=== PATIENT | female | born 1955 ===

== ENCOUNTER 2017-06-17 16:08 | Emergency (ER) | payer MEDICARE ==
[2017-06-17 16:27] VITALS: BMI 32.9
[2017-06-17 16:28] VITALS: RESP 18
--- NOTE | 2017-06-17 17:30 | C.PDOC ---
History Of Present Illness 61 yr old female presents to the ER with complaints of 3 day history of painful rash to the right axilla. Patient states she had similar symptoms and was diagnoses with shingles last year. Patient also reports of a rash under bilateral breasts for a few weeks. Denies fever, chills, chest pain, SOB, nausea , vomiting, abdominal pain, weakness or numbness. Time Seen by Provider: 06/17/17 16:41 Chief Complaint (Nursing): Abnormal Skin Integrity History Per: Patient History/Exam Limitations: no limitations Onset/Duration Of Symptoms: Days Past Medical History Reviewed: Historical Data, Nursing Documentation, Vital Signs Vital Signs: Last Vital Signs Temp 97.9 F 06/17/17 17:50 Pulse 74 06/17/17 17:50 Resp 18 06/17/17 17:50 BP 109/73 06/17/17 17:50 Pulse Ox 95 06/17/17 20:15 - Medical History PMH: Anxiety, Bipolar Disorder, Depression, Fractures (right foot) Surgical History: - [facility] Procedures INDIVID PSYCHOTHERAP NEC (07/10/14) OTHER GROUP THERAPY (07/10/14) Family History: States: No Known Family Hx - Social History Hx Alcohol Use: No Hx Substance Use: No - Immunization History Hx Tetanus Toxoid Vaccination: No Hx Influenza Vaccination: No Hx Pneumococcal Vaccination: No Review Of Systems Except As Marked, All Systems Reviewed And Found Negative. Constitutional: Negative for: Fever, Chills Cardiovascular: Negative for: Chest Pain Respiratory: Negative for: Shortness of Breath Gastrointestinal: Negative for: Nausea, Vomiting, Abdominal Pain Skin: Positive for: Rash (Painful rash to the right axilla. Rash under bilateral breast. ) Neurological: Negative for: Weakness, Numbness Physical Exam - Physical Exam Appears: Non-toxic, No Acute Distress Skin: Warm, Dry, Other ((+) Vesicular rash to the right axilla in a dermatomal distribution. Under bilateral breast, scaling pink rash. No drainage. No swelling. ) Head: Atraumatic, Normacephalic Oral Mucosa: Moist Chest: Symmetrical, No Tenderness Cardiovascular: Rhythm Regular, No Murmur Respiratory: Normal Breath Sounds, No Rales, No Rhonchi, No Stridor, No Wheezing Extremity: Normal ROM, No Swelling Neurological/Psych: Oriented x3, Normal Speech, Normal Motor ED Course And Treatment O2 Sat by Pulse Oximetry: 95 (RA ) Pulse Ox Interpretation: Normal Medical Decision Making Medical Decision Making: PLAN: * Acyclovir PO * Prednisone PO Disposition - Disposition Referrals: [facility] [Outside] Disposition: HOME/ ROUTINE Disposition Time: 17:25 Condition: GOOD Additional Instructions: Follow up with the medical doctor within 1-2 days. return if worsened. Prescriptions: Acyclovir [Zovirax] 800 mg PO 5XD #35 tab Clotrimazole 1% Cream [Lotrimin 1% CREAM] 15 applic EXT BID #2 tube Ibuprofen [Motrin] 1 tab PO TID PRN #30 tab PRN Reason: Pain predniSONE [Prednisone] 20 mg PO BID #10 tab traMADol [Ultram] 50 mg PO Q6 PRN #20 tab PRN Reason: Pain Instructions: Shingles (ED) Forms: [facility] (Maltese) - Clinical Impression Clinical Impression: Herpes zoster, Intertrigo - PA / EXPLOSIVE ORDNANCE TECHNICIAN / Resident Statement MD/DO has reviewed & agrees with the documentation as recorded. - Scribe Statement The provider has reviewed the documentation as recorded by the Scribe Mer García All medical record entries made by the Mary Ellenibmagali were at my direction and personally dictated by me. I have reviewed the chart and agree that the record accurately reflects my personal performance of the history, physical exam, medical decision making, and the department course for this patient. I have also personally directed, reviewed, and agree with the discharge instructions and disposition.
[2017-06-17 17:51] VITALS: BP 109/73; PULSE 74; TEMP 97.9
[2017-06-17 20:11] VITALS: O2SAT 95
== END 2017-06-17 17:56 | disposition home or self-care (01) ==
LOC: C.ER 16:08
DX: B02.9 Zoster without complications (principal); L30.4 Erythema intertrigo

== ENCOUNTER 2018-10-27 19:14 | Emergency (ER) | payer MEDICARE ==
[2018-10-27 19:14] VITALS: BMI 34.0
[2018-10-27 20:14] VITALS: BP 157/85; PULSE 92; RESP 20; TEMP 98.3; O2SAT 95
--- NOTE | 2018-10-27 22:07 | C.PDOC ---
History Of Present Illness 63 y/o female with bipolar disorder, on Navane, presents to ED requesting refill of medications. pt sts her pharmacy won't have refill of medication until tuesday. hsn't taken it in 4-5 days. denies ah, si, hi, depression. pt reports feeling mildly anxious without medications. no medical complaints. Time Seen by Provider: 10/27/18 20:49 Chief Complaint (Nursing): Med Refill Past Medical History Vital Signs: Last Vital Signs Temp 98.3 F 10/27/18 20:07 Pulse 92 H 10/27/18 20:07 Resp 20 10/27/18 20:07 BP 157/85 H 10/27/18 20:07 Pulse Ox 95 10/27/18 20:07 - Medical History PMH: Anxiety, Bipolar Disorder, Depression, Fractures (right foot) Denies: Diabetes, Hepatitis, HIV, HTN, Chronic Kidney Disease, Seizures, Sexually Transmitted Disease Surgical History: - [facility] Procedures INDIVID PSYCHOTHERAP NEC (07/10/14) OTHER GROUP THERAPY (07/10/14) Family History: States: Unknown Family Hx - Social History Hx Alcohol Use: No Hx Substance Use: No - Immunization History Hx Tetanus Toxoid Vaccination: No Hx Influenza Vaccination: No Hx Pneumococcal Vaccination: No Review Of Systems Constitutional: Positive for: Other (refill for medication) Psych: Positive for: Anxiety (due to being off medication) Physical Exam - Physical Exam Appears: Non-toxic, No Acute Distress Skin: Warm, Dry Eye(s): bilateral: Normal Inspection Chest: Symmetrical Cardiovascular: Rhythm Regular Respiratory: Normal Breath Sounds Gastrointestinal/Abdominal: Soft, No Tenderness Extremity: Normal ROM (x4) Neurological/Psych: Oriented x3, Normal Speech, Normal Motor, Normal Sensation ED Course And Treatment O2 Sat by Pulse Oximetry: 95 (RA) Pulse Ox Interpretation: Normal Medical Decision Making Medical Decision Making: Reassess: On reassessment, patient is resting comfortably, and is in no acute distress. Patient was instructed to follow up with physician/clinic in 1-2 days for further evaluation. Instruct patient to go to pharmacy for refill of her medication. discussion had with patient about need to make sure refills sent to pharmacy before current rx runs avoid to avoid lapse in medication. pt expresses understanding. Disposition Counseled Patient/Family Regarding: Diagnosis, Need For Followup - Disposition Disposition: HOME/ ROUTINE Disposition Time: 22:05 Condition: GOOD Additional Instructions: Get medication from your pharmacy on Tuesday. Follow up with your psychiatrist as scheduled. Please make sure not to run out of medication after this refill; talk to your pharmacy about keeping it in stock for you. Forms: [facility] (Maldivian), General Discharge Instructions - Clinical Impression Clinical Impression: Medication refill - PA / RESOURCE FORESTER / Resident Statement / has reviewed & agrees with the documentation as recorded. - Scribe Statement The provider has reviewed the documentation as recorded by the Richardson Mcpherson Do All medical record entries made by the Richardson were at my direction and personally dictated by me. I have reviewed the chart and agree that the record accurately reflects my personal performance of the history, physical exam, medical decision making, and the department course for this patient. I have also personally directed, reviewed, and agree with the discharge instructions and disposition.
== END 2018-10-27 22:28 | disposition home or self-care (01) ==
LOC: C.ER 19:14
DX: Z76.0 Encounter for issue of repeat prescription (principal)